=== PATIENT | female | born 1985 | race Caucasian/White ===

== ENCOUNTER → 2019-01-01 | Outpatient (CLI) | payer OTHER ==
[~2019-01-01] MED LIST: IOPAMIDOL (ISOVUE-300) 100 ML BTL ONE
== END ==
LOC: FIMAGING 14:41
PROVIDERS: ATTEND Nurse Practitioner Family
DX: R10.31 Right lower quadrant pain (principal); G96.19 Other disorders of meninges, not elsewhere classified
CPT/HCPCS: Q9967

== ENCOUNTER → 2019-01-01 | Outpatient (CLI) | payer OTHER | LOC: BMCIMAGING 10:59 | PROVIDERS: ATTEND Nurse Practitioner Family | DX: R10.31 Right lower quadrant pain (principal); R10.2 Pelvic and perineal pain ==